=== PATIENT | female | born 1985 | race Caucasian/White ===

== ENCOUNTER 2024-10-24 07:45 | Outpatient (RCR) | payer OTHER, SELFPAY ==
[2024-10-24] MEDS: NSS 1000 IV ×2 (08:22→10:25)
[2024-10-24 08:39] VITALS: BP 142/89
[2024-10-24 08:53] LABS: Potassium 3.8 mmol/L (3.5-5.1)
[2024-10-24 12:45] VITALS: BP 146/90
[2024-10-25 12:26] LABS: Aldosterone, Serum 15.8 ng/dL
[2024-10-25 23:46] LABS: Aldosterone, Serum 7.4 ng/dL
[2024-10-26 09:07] LABS: Renin Activity Results 0.1 ng/mL/hr
[2024-10-26 09:07] LABS: Renin Activity Results 0.2 ng/mL/hr
== END 2024-10-25 09:13 | disposition home or self-care (01) ==
LOC: OID 07:45
PROVIDERS: ATTENDING PHYSICIAN Internal Medicine Endocrinology, Diabetes & Metabolism; FAMILY PHYSICIAN Nurse Practitioner Primary Care
DX: D35.00 Benign neoplasm of unspecified adrenal gland (principal)
CPT/HCPCS: 36415; 82088; 84132; 84244; 96360; 96361